=== PATIENT | male | born 1985 | race Caucasian/White ===

== ENCOUNTER 2019-10-03 12:32 | Day surgery (SDC) | payer OTHER ==
[~2019-10-03] VITALS: Ht 167.6 cm; Wt 114.1 kg
[~2019-10-03 12:32] MED LIST: BUPIVACAINE/PF 0.5% ONE; EPINEPHRINE 1 MG/ML, 1ML ONE; LIDOCAINE 1%, 20ML ONE
[2019-10-03] MEDS ORDERED: FENTANYL PF 100 MCG/2ML ONE ×3 (13:03→15:48)
[2019-10-03] MEDS ORDERED: MIDAZOLAM 1 MG/ML, 2ML ONE (13:03)
[2019-10-03] MEDS ORDERED: IBUP-1902 PO (13:07)
[2019-10-03] MEDS ORDERED: LACTATED RINGERS 1,000 ML IV SCH (13:08)
[2019-10-03 13:14] VITALS: BP 142/94
[2019-10-03] MEDS ORDERED: ACETAMINOPHEN 500 MG TABLET PO ONE (13:30)
[2019-10-03] MEDS ORDERED: GABAPENTIN 300 MG CAPSULE PO ONE (13:30)
[2019-10-03] MEDS ORDERED: KETOROLAC 30 MG/1 ML ONE (14:47)
[2019-10-03] MEDS ORDERED: CEFAZOLIN 1,000 MG ONE (15:19)
[2019-10-03] MEDS ORDERED: DEXAMETHASONE 4 MG/ML, 1ML ONE (15:19)
[2019-10-03] MEDS ORDERED: ONDANSETRON 2MG/ML, 2ML ONE (15:19)
[2019-10-03] MEDS ORDERED: PROPOFOL 10 MG/ML, 20ML ONE (15:19)
[2019-10-03] MEDS ORDERED: PROMETHAZINE 25 MG/ML, 1ML IV PRN (15:30)
[2019-10-03] MEDS ORDERED: IBUPROFEN 200 MG TABLET PO SCH (15:30)
[2019-10-03] MEDS ORDERED: METOPROLOL 1 MG/ML, 5ML IV PRN (15:30)
[2019-10-03] MEDS ORDERED: HYDROmorphone 2 MG/ML, 1ML IVPush PRN (15:30)
[2019-10-03] MEDS ORDERED: OXYcodone 5 MG/5 ML ORAL.SOL UDC PO PRN ×2 (15:30→16:00)
[2019-10-03] MEDS ORDERED: ALBUTEROL/IPRATROPIUM 2.5MG/0.5MG, 3 ML NPPB PRN (15:30)
[2019-10-03] MEDS ORDERED: MIDAZOLAM 1 MG/ML, 2ML IV PRN (15:30)
[2019-10-03] MEDS ORDERED: hydrALAzine 20 MG/ML, 1ML IV PRN (15:30)
[2019-10-03] MEDS ORDERED: MEPERIDINE/PF 25MG/ML,1ML IVPush PRN (15:30)
[2019-10-03] MEDS: FENTANYL PF 100 MCG/2ML IV PRN ×3 (15:46→16:16)
[2019-10-03] MEDS ORDERED: OXYcodone 5 MG/5 ML ORAL.SOL UDC ONE (15:49)
== END 2019-10-03 17:55 | disposition home or self-care (01) ==
LOC: OUT 12:32
PROVIDERS: ATTEND Orthopaedic Surgery
DX: S83.231A Complex tear of medial meniscus, current injury, right knee, initial encounter (principal); M94.261 Chondromalacia, right knee; M67.51 Plica syndrome, right knee; M21.161 Varus deformity, not elsewhere classified, right knee; E66.01 Morbid (severe) obesity due to excess calories; Z68.39 Body mass index [BMI] 39.0-39.9, adult; Z79.1 Long term (current) use of non-steroidal anti-inflammatories (NSAID); W17.2XXA Fall into hole, initial encounter; Y93.89 Activity, other specified; Y92.89 Other specified places as the place of occurrence of the external cause; Y99.8 Other external cause status
CPT/HCPCS: 29881; J0690; J1100; J1885; J2250; J2405; J2704; J3010; J7120; J0171